=== PATIENT | female | born 2000 ===

== ENCOUNTER 2023-07-26 00:20 | Emergency (ER) | payer OTHER ==
[~2023-07-26] VITALS: Ht 147.3 cm; Wt 50.8 kg
[2023-07-26 02:50] LABS: HEMOGLOBIN 12.6 g/dL (12.0-15.00); MEAN CORPUSCULAR HEMOGLOBIN 30.2 pg (27.00-32.0); MEAN CORPUSCULAR HGB CONC 33.1 g/dl (32.0-36.0); PLATELET COUNT 264 K/uL (150-450); RED BLOOD COUNT 4.17 M/uL (4.00-6.00); RED CELL DISTRIBUTION WIDTH 12.9 % (11.5-14.5)
[2023-07-26] MEDS ORDERED: CEPHALEXIN500 MG PO (04:49)
[2023-07-26] MEDS ORDERED: KETO10TA2 PO (04:49)
== END 2023-07-26 05:02 | disposition home or self-care (01) ==
LOC: ER 00:20
PROVIDERS: General Practice
DX: N39.0 Urinary tract infection, site not specified (principal); R10.2 Pelvic and perineal pain